=== PATIENT | female | born 1975 | race Caucasian/White ===

== ENCOUNTER 2017-04-01 20:18 | Emergency (ER) | payer MEDICAID ==
[~2017-04-01] VITALS: Ht 165.1 cm; Wt 81.6 kg
--- NOTE | 2017-04-01 20:25 | NUR ---
TO BED 4 A 42 YO FEMALE BIBSELF, PER PATIENT SHE WAS SENT FROM URGENT CARE C/O INTERMITTENT CHEST PRESSURE AT 3/10 SINCE AM, ASA 81 MG GIVEN, EKG WITH PVC'S. VSS. NONDIAPHORETIC. DENIES N/V/DIZINESS. NAD NOTED. GOWNED. COMFORT MEASURES RENDERED. AWAITING FOR ER MD [place].
--- NOTE | 2017-04-01 20:33 | NUR ---
DR YOUNG AT BEDSIDE.
--- NOTE | 2017-04-01 20:42 | NUR ---
EKG DONE AT BS.
[2017-04-01 21:45] VITALS: BP 133/77
--- NOTE | 2017-04-01 21:45 | NUR ---
Patient discharged to home in stable condition. Written and verbal after care instructions given. Patient verbalizes understanding of instruction.
== END 2017-04-01 21:46 | disposition home or self-care (01) ==
LOC: ER 20:21
DX: R07.89 Other chest pain (principal); F41.9 Anxiety disorder, unspecified; F43.0 Acute stress reaction; J45.909 Unspecified asthma, uncomplicated; Z79.82 Long term (current) use of aspirin; Z88.0 Allergy status to penicillin
CPT/HCPCS: 71010; 93005; 99284; A4606; Z7610